=== PATIENT | male | born 1990 | race Caucasian/White ===

== ENCOUNTER 2017-10-19 20:44 | Emergency (ER) | payer MEDICAID ==
[~2017-10-19] VITALS: Ht 170.2 cm; Wt 65.8 kg
[2017-10-19 20:45] VITALS: BP_SYST 158
--- NOTE | 2017-10-19 20:45 | NUR ---
Placed in room 7. Placed on gambling monitor, blood pressure machine and pulse oximeter. Seizure precautions in place. To gown for exam. Side rails up.
--- NOTE | 2017-10-19 20:46 | NUR ---
Patient brought in to ER via ACLS. #20G IV on L hand on saline lock. Patient A/O x 3. Pt on 2L NC saturating @ 97%. Pt reported to have tonic clonic seizure for 3 mins while in the car. No trauma or incontinence noted. Pt denies fever, N&V. Mother at bedside. Seizure precautions in place. No SOB or acute distress noted. Will continue to monitor.
--- NOTE | 2017-10-19 21:00 | NUR ---
Patient moved from bed 7 to bed 4. No seizure activity noted, patient's mother remains at bedside. Patient voided without difficulty via urinal, specimen obtained and sent to lab. Awaiting dispo.
--- NOTE | 2017-10-19 21:00 | NUR ---
Pt on gurney with both rails up and lined with seizure pads. Placed on playground monitor.
--- NOTE | 2017-10-19 21:42 | NUR ---
Dr Canales at bedside to evaluate patient.
[2017-10-19] MEDS ORDERED: LORazepam 2 MG/ML VIAL (FOR ER USE) ONE (21:55)
--- NOTE | 2017-10-19 21:55 | NUR ---
Patient having tonic/clonic seizure, Dr Canales at bedside to evaluate patient. Field IV out, restarted #20 IV in left upper arm. Patient medicated with Ativan 1 mg IVP per v.o. of Dr Canales. No injury/trauma noted. Seizure precautions remain in place, patient's mother remains at bedside.
[2017-10-19] MEDS ORDERED: PHENYTOIN SODIUM INJ 1,000 MG in NS 100 ML IV ONE (22:00)
[2017-10-19] MEDS ORDERED: LORazepam 2 MG/ML VIAL (FOR ER USE) IVP ONE (22:00)
[2017-10-19] MEDS ORDERED: PHENYTOIN SODIUM 250 MG/5 ML INJ. VIAL IV ONE (22:05)
--- NOTE | 2017-10-19 22:15 | NUR ---
No further seizure activity noted. IV Dilantin infusing without difficulty via pump.
--- NOTE | 2017-10-19 22:45 | NUR ---
IV Dilantin infusion complete, no further seizure activity noted. Patient is awake, alert and oriented in no acute distress. OK to discharge patient per Dr Canales.
[2017-10-19 22:50] VITALS: BP_SYST 134
--- NOTE | 2017-10-19 22:50 | NUR ---
Patient given written and verbal discharge instructions and verbalizes understanding. ER MD discussed with patient the results and treatment provided. Patient in stable condition. ID arm band removed. IV catheter removed intact and dressing applied, no active bleeding. No RX given. Patient educated on pain management and to follow up with PMD. Pain Scale 0. Opportunity for questions provided and answered. Medication side effect fact sheet provided. Patient left ER in no acute distress, patient brought to exit via wheelchair by EMT, no futher seizure activity noted. No adverse reaction noted to medication. No questions related to aftercare.
== END 2017-10-19 22:50 | disposition home or self-care (01) ==
LOC: SED 20:44
DX: R56.9 Unspecified convulsions (principal); I10 Essential (primary) hypertension
CPT/HCPCS: 96365; 96375; 99284; J1165; J2060

== ENCOUNTER 2021-06-10 18:45 | Emergency (ER) | payer MEDICAID ==
[~2021-06-10] VITALS: Ht 170.2 cm; Wt 66.7 kg
--- NOTE | 2021-06-10 18:45 | NUR ---
Pt triaged in H1 chair with PD at bedside
[2021-06-10 18:59] VITALS: BP_SYST 117
--- NOTE | 2021-06-10 19:38 | NUR ---
Patient medically cleared and discharged by Dr Garcia. She discussed with patient the care provided. Patient in stable condition. No Rx given. Patient educated on pain management and to follow up with PMD. Pain Scale 0/10.
== END 2021-06-10 19:38 ==
LOC: SED 18:45
DX: S00.211A Abrasion of right eyelid and periocular area, initial encounter (principal); I10 Essential (primary) hypertension; V49.49XA Driver injured in collision with other motor vehicles in traffic accident, initial encounter; Y93.89 Activity, other specified; Y92.89 Other specified places as the place of occurrence of the external cause; Y99.8 Other external cause status
CPT/HCPCS: 99283

== ENCOUNTER 2021-06-11 00:03 | Emergency (ER) | payer MEDICAID ==
[~2021-06-11] VITALS: Ht 170.2 cm; Wt 66.7 kg
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
[2021-06-11 00:05] VITALS: BP_SYST 136
--- NOTE | 2021-06-11 00:09 | NUR ---
EREN Paulson examining patient.
[2021-06-11 00:32] VITALS: BP_SYST 132
--- NOTE | 2021-06-11 00:32 | NUR ---
Patient medically cleared by ER MD, was given written and verbal discharge instructions and verbalizes understanding. ER MD discussed with patient the results and treatment provided. Patient in stable condition. ID arm band removed. No Rx given. Patient educated on pain management and to follow up with PMD. Pain Scale 0/10. Patient accompanied by law enforcement officers in handcuffs.
== END 2021-06-11 00:32 ==
LOC: SED 00:03
DX: M25.531 Pain in right wrist (principal); M25.532 Pain in left wrist
CPT/HCPCS: 99283